=== PATIENT | female | born 1970 | race Caucasian/White ===

== ENCOUNTER 2016-06-07 21:24 | Emergency (ER) | payer BC ==
[~2016-06-07] VITALS: Ht 167.6 cm; Wt 81.4 kg
[2016-06-07 21:55] LABS: HEMATOCRIT 36.5 % (36.0-46.0); MCH 30.5 PG (29.0-34.0); MCHC 32.9 G/DL (30.0-36.0); MCV 92.6 FL (83-99); MEAN PLAT.VOLUME 10.6 uM^3 (9.5-12.4); PLATELET COUNT 262 K/uL (156-360); RBC DIS.WIDTH-CV 12.5 % (11.8-14.6); RED BLOOD COUNT 3.94 M/uL (3.80-5.20); WHITE BLOOD COUNT 7.3 K/uL (4.1-10.2)
[2016-06-07 22:09] LABS: CHLORIDE 101 mEq/L (99-109); POTASSIUM 3.6 mEq/L (3.7-5.4); SODIUM 134 mEq/L (136-147)
[2016-06-07 22:12] LABS: ANION GAP 13 MEQ/L (2-14)
[2016-06-07 22:20] LABS: GLUCOSE 114 mg/dL (70-99)
[2016-06-07 22:24] LABS: GFR ESTIMATE (CALCULATED) > 59 mL/min/
[2016-06-07 22:25] LABS: TROP-I INTERPRETATION NEGATIVE; TROPONIN-I < 0.01 ng/mL (0.0-0.30)
[2016-06-07 22:25] LABS: UREA NITROGEN (BUN) 13 mg/dL (9-23)
[2016-06-07 22:27] LABS: LIPASE 5 U/L (1.0-51.0)
[2016-06-07 22:47] LABS: QUANTITATIVE HCG < 4.0 MIU/ML
[2016-06-07 23:08] LABS: ADD MIUA? YES; BILIRUBIN NEGATIVE; BLOOD SMALL; GLUCOSE (STRIP) NEGATIVE; KETONES 5; LEUKOCYTES MODERATE; NITRITE POSITIVE; PROTEIN (STRIP) 30; SPECIFIC GRAVITY 1.011 (1.000-1.030)
[2016-06-07 23:33] LABS: COLOR YELLOW ((YELLOW))
[2016-06-07 23:57] LABS: EPITHELIAL CELLS RARE /HPF; MUCUS NONE SEEN /LPF; UCUL ADDED? YES; WHITE BLOOD CELLS TNTC /HPF (0-5)
[2016-06-08 00:01] LABS: BACTERIA 1+ /HPF
[2016-06-08] MEDS ORDERED: AUGMENTIN875 MG PO (00:28)
[2016-06-08] MEDS ORDERED: TYLENOL WITH C1 EACH PO (00:28)
[2016-06-08] MEDS ORDERED: ZOFRAN ODT4 MG PO (00:31)
[2016-06-08 01:29] VITALS: BP 122/74
== END 2016-06-08 01:35 | disposition home or self-care (01) ==
LOC: EME 21:24
PROVIDERS: Physician Assistant
DX: N12 Tubulo-interstitial nephritis, not specified as acute or chronic (principal); R07.9 Chest pain, unspecified; Z87.442 Personal history of urinary calculi; Z98.84 Bariatric surgery status
CPT/HCPCS: 71010; 80048; 81003; 83605; 83690; 84484; 84702; 85027; 87040; 87077; 87086; 87186; 87801; 93005; 99281; 99285; J0696; J1885; J2270; J2405; J3010; J7050

== ENCOUNTER 2016-09-25 06:18 | Emergency (ER) | payer BC ==
[~2016-09-25] VITALS: Ht 167.6 cm; Wt 83.5 kg
[~2016-09-25 06:18] MED LIST: AUGMENTIN875 MG PO; TYLENOL WITH C1 EACH PO; ZOFRAN ODT4 MG PO
[2016-09-25 06:39] LABS: HEMATOCRIT 33.1 % (36.0-46.0); MCH 30.3 PG (29.0-34.0); MCHC 32.6 G/DL (30.0-36.0); MEAN PLAT.VOLUME 10.7 uM^3 (9.5-12.4); PLATELET COUNT 334 K/uL (156-360); RBC DIS.WIDTH-CV 13.2 % (11.8-14.6); RED BLOOD COUNT 3.56 M/uL (3.80-5.20); WHITE BLOOD COUNT 14.8 K/uL (4.1-10.2)
[2016-09-25 06:50] LABS: CHLORIDE 106 mEq/L (99-109); POTASSIUM 3.8 mEq/L (3.7-5.4); SODIUM 139 mEq/L (136-147)
[2016-09-25 06:51] LABS: GLUCOSE 94 mg/dL (70-99)
[2016-09-25 06:53] LABS: ANION GAP 9 MEQ/L (2-14)
[2016-09-25 06:55] LABS: GFR ESTIMATE (CALCULATED) > 59 mL/min/
[2016-09-25 06:56] LABS: UREA NITROGEN (BUN) 10 mg/dL (9-23)
[2016-09-25 07:38] LABS: QUANTITATIVE HCG < 4.0 MIU/ML
[2016-09-25 07:58] LABS: ALKALINE PHOSPHATASE 70 IU/L (3-129); LIPASE 4 U/L (1.0-51.0); TOTAL BILIRUBIN 0.2 MG/DL (0.0-1.0)
[2016-09-25 10:09] LABS: ADD MIUA? YES; BILIRUBIN NEGATIVE; BLOOD MODERATE; COLOR YELLOW ((YELLOW)); GLUCOSE (STRIP) NEGATIVE; KETONES NEGATIVE; LEUKOCYTES SMALL; NITRITE NEGATIVE; PROTEIN (STRIP) NEGATIVE; SPECIFIC GRAVITY 1.032 (1.000-1.030); UROBILINOGEN 0.2 MG/DL (0.2-1.0)
[2016-09-25 10:13] LABS: BACTERIA RARE /HPF; EPITHELIAL CELLS RARE /HPF; MUCUS NONE SEEN /LPF; RED BLOOD CELLS 0-5 /HPF (0-5); UCUL ADDED? NO
[2016-09-25] MEDS ORDERED: NAPROXEN500 MG PO (13:35)
[2016-09-25 14:12] VITALS: BP 97/57
[2016-09-28 13:46] LABS: CHLAMYDIA TRACHOMATIS NEGATIVE; NEISSERIA GONORRHOEAE NEGATIVE
== END 2016-09-25 14:14 | disposition home or self-care (01) ==
LOC: EME 06:18
PROVIDERS: Physician Assistant
DX: N73.9 Female pelvic inflammatory disease, unspecified (principal); N76.0 Acute vaginitis; D25.9 Leiomyoma of uterus, unspecified; G43.909 Migraine, unspecified, not intractable, without status migrainosus; Z98.84 Bariatric surgery status
CPT/HCPCS: 74177; 76856; 80048; 80076; 81003; 83605; 83690; 84702; 85027; 87210; 87480; 87491; 87510; 87591; 87660; 99281; 99284; J0696; J1885; J2270; J3010; J7120

== ENCOUNTER 2016-09-26 23:17 | Emergency (ER) | payer BC ==
[~2016-09-26] VITALS: Ht 167.6 cm; Wt 83.8 kg
[~2016-09-26 23:17] MED LIST changes: +NAPROXEN500 MG PO
[2016-09-27 00:51] LABS: EOSINOPHIL (%) 1.9 % (0-5); EOSINOPHIL COUNT 0.2 K/uL (0-0.3); HEMATOCRIT 33.6 % (36.0-46.0); IMMATURE GRANULOCYTE (%) 0.3 % (0.0-0.7); INSTRUMENT ABS NEUTROPHIL CT 5.5 K/uL; LYMPHOCYTE COUNT 2.7 K/uL (1.0-2.8); MCHC 31.8 G/DL (30.0-36.0); MCV 94.1 FL (83-99); MEAN PLAT.VOLUME 10.7 uM^3 (9.5-12.4); MONOCYTE COUNT 0.6 K/uL (0-0.8); NEUTROPHIL (%) 60.5 % (45-76); NEUTROPHIL COUNT 5.5 K/uL (1.8-6.4); PLATELET COUNT 313 K/uL (156-360); RBC DIS.WIDTH-CV 12.9 % (11.8-14.6); RBC DIS.WIDTH-SD 44.6 % (39-53); RED BLOOD COUNT 3.57 M/uL (3.80-5.20)
[2016-09-27 01:01] LABS: CHLORIDE 102 mEq/L (99-109); POTASSIUM 4.2 mEq/L (3.7-5.4); SODIUM 135 mEq/L (136-147)
[2016-09-27 01:03] LABS: GLUCOSE 99 mg/dL (70-99)
[2016-09-27 01:04] LABS: ANION GAP 9 MEQ/L (2-14)
[2016-09-27 01:05] LABS: TOTAL BILIRUBIN 0.2 mg/dL (0.0-1.0)
[2016-09-27 01:07] LABS: ALKALINE PHOSPHATASE 66 IU/L (3-129); GFR ESTIMATE (CALCULATED) > 59 mL/min/
[2016-09-27 01:08] LABS: UREA NITROGEN (BUN) 11 mg/dL (9-23)
[2016-09-27 01:10] LABS: LIPASE 5 U/L (1.0-51.0)
[2016-09-27 01:51] LABS: COLOR ORANGE ((YELLOW))
[2016-09-27 01:52] LABS: ADD MIUA? YES
[2016-09-27 01:55] LABS: SPECIFIC GRAVITY 1.045 (1.000-1.030)
[2016-09-27 01:56] LABS: RED BLOOD CELLS 0-5 /HPF (0-5)
[2016-09-27 01:57] LABS: BACTERIA 1+ /HPF; EPITHELIAL CELLS 1+ /HPF; MUCUS 2+ /LPF
[2016-09-27 01:58] LABS: CRYSTALS PRESENT
[2016-09-27 02:00] LABS: AMORPHOUS URATES CRYSTALS 1+
[2016-09-27] MEDS ORDERED: PERCOCET 5/31 TABLET PO (04:06)
[2016-09-27] MEDS ORDERED: KEFLEX500 MG PO (04:06)
[2016-09-27] MEDS ORDERED: PYRIDIUM200 MG PO (04:06)
[2016-09-27 04:41] VITALS: BP 97/58
== END 2016-09-27 04:45 | disposition home or self-care (01) ==
LOC: EME 23:17
PROVIDERS: Physician Assistant
DX: N39.0 Urinary tract infection, site not specified (principal); Z87.442 Personal history of urinary calculi; Z98.84 Bariatric surgery status; Z90.49 Acquired absence of other specified parts of digestive tract; F17.200 Nicotine dependence, unspecified, uncomplicated
CPT/HCPCS: 76856; 80053; 81003; 83690; 85025; 87086; 99281; 99285; J0696; J1885; J2270; J2405; J3010; J7050

== ENCOUNTER 2017-04-18 17:46 | Emergency (ER) | payer BC ==
[~2017-04-18] VITALS: Ht 170.2 cm; Wt 81.8 kg
[~2017-04-18 17:46] MED LIST changes: +KEFLEX500 MG PO; +PERCOCET 5/31 TABLET PO; +PYRIDIUM200 MG PO
[2017-04-18 18:26] LABS: HEMATOCRIT 31.3 % (36.0-46.0); HEMOGLOBIN 10.5 G/DL (11.9-15.5); MCH 31.2 PG (29.0-34.0); MCHC 33.5 G/DL (30.0-36.0); MCV 92.9 FL (83-99); PLATELET COUNT 330 K/uL (156-360); RBC DIS.WIDTH-CV 12.9 % (11.8-14.6); RBC DIS.WIDTH-SD 43.8 % (39-53); RED BLOOD COUNT 3.37 M/uL (3.80-5.20); WHITE BLOOD COUNT 9.7 K/uL (4.1-10.2)
[2017-04-18 18:35] LABS: CHLORIDE 112 mEq/L (99-109); POTASSIUM 3.5 mEq/L (3.7-5.4); SODIUM 141 mEq/L (136-147)
[2017-04-18 18:37] LABS: GLUCOSE 107 mg/dL (70-99)
[2017-04-18 18:41] LABS: CREATININE 0.7 mg/dL (0.6-1.3); GFR ESTIMATE (CALCULATED) > 59 mL/min/
[2017-04-18 18:42] LABS: UREA NITROGEN (BUN) 10 mg/dL (9-23)
[2017-04-18 22:56] LABS: APPEARANCE CLEAR ((CLEAR)); BILIRUBIN NEGATIVE; BLOOD NEGATIVE; COLOR STRAW ((YELLOW)); GLUCOSE (STRIP) NEGATIVE; KETONES NEGATIVE; LEUKOCYTES NEGATIVE; NITRITE NEGATIVE; PROTEIN (STRIP) NEGATIVE; SPECIFIC GRAVITY 1.035 (1.000-1.030); UROBILINOGEN 0.2 MG/DL (0.2-1.0)
[2017-04-18 23:09] LABS: ALBUMIN 2.7 g/dL (3.2-4.8)
[2017-04-18 23:12] LABS: TOTAL PROTEIN 4.8 g/dL (6.4-8.3)
[2017-04-18 23:13] LABS: TOTAL BILIRUBIN 0.3 mg/dL (0.0-1.0)
[2017-04-18 23:14] LABS: ALKALINE PHOSPHATASE 74 IU/L (3-129)
[2017-04-18 23:17] LABS: ALT (GPT) 23 IU/L (3-49); AST (GOT) 27 IU/L (2-34); DIRECT BILIRUBIN 0.2 mg/dL (0.0-0.3)
[2017-04-18 23:18] LABS: LIPASE 3 U/L (1.0-51.0)
[2017-04-19] MEDS ORDERED: MEDROL DOSEPAK4 MG PO (00:05)
[2017-04-19 00:47] VITALS: BP 128/89
== END 2017-04-19 00:49 | disposition left against medical advice (07) ==
LOC: EME 17:46
PROVIDERS: Emergency Medicine; Nurse Practitioner Family
DX: M54.9 Dorsalgia, unspecified (principal); M47.897 Other spondylosis, lumbosacral region; G95.89 Other specified diseases of spinal cord; M46.97 Unspecified inflammatory spondylopathy, lumbosacral region; G89.29 Other chronic pain; Z87.442 Personal history of urinary calculi; Z90.49 Acquired absence of other specified parts of digestive tract; Z98.84 Bariatric surgery status; Z87.440 Personal history of urinary (tract) infections
CPT/HCPCS: 72132; 74176; 80048; 80076; 81003; 83690; 85027; 99281; 99284; J1100; J1885; J2060; J2270; J3010; J7030; J7050

== ENCOUNTER 2017-05-17 20:07 | Emergency (ER) | payer BC ==
[~2017-05-17] VITALS: Ht 167.6 cm; Wt 81.6 kg
[~2017-05-17 20:07] MED LIST changes: +MEDROL DOSEPAK4 MG PO
[2017-05-17 22:19] VITALS: BP 145/95
== END 2017-05-17 22:26 | disposition home or self-care (01) ==
LOC: EME 20:07
DX: T19.2XXA Foreign body in vulva and vagina, initial encounter (principal); Z87.440 Personal history of urinary (tract) infections; Z87.442 Personal history of urinary calculi; Z90.49 Acquired absence of other specified parts of digestive tract; Z86.19 Personal history of other infectious and parasitic diseases; Z98.84 Bariatric surgery status; Z98.890 Other specified postprocedural states
CPT/HCPCS: 99281; 99284

== ENCOUNTER 2017-05-26 19:39 | Emergency (ER) | payer BC ==
[~2017-05-26] VITALS: Ht 167.6 cm; Wt 79.1 kg
[2017-05-26] MEDS ORDERED: AUGMENTIN875 MG PO (22:26)
[2017-05-26] MEDS ORDERED: FLONASE16 G1 BOTH NARES (22:36)
[2017-05-26] MEDS ORDERED: MUCINEX D ER T1 EACH PO (22:36)
[2017-05-26] MEDS ORDERED: PREDNISONE20 MG PO (22:36)
[2017-05-26 23:13] VITALS: BP 108/67
== END 2017-05-26 23:19 | disposition home or self-care (01) ==
LOC: EME 19:39
DX: J32.9 Chronic sinusitis, unspecified (principal); J02.9 Acute pharyngitis, unspecified; K02.9 Dental caries, unspecified
CPT/HCPCS: 87651 90; 99281; 99283; J7512

== ENCOUNTER 2017-08-10 19:55 | Emergency (ER) | payer BC ==
[~2017-08-10] VITALS: Ht 167.6 cm; Wt 75.6 kg
[~2017-08-10 19:55] MED LIST changes: +FLONASE16 G1 BOTH NARES; +MUCINEX D ER T1 EACH PO; +PREDNISONE20 MG PO
[2017-08-10 20:28] LABS: HEMATOCRIT 35.9 % (36.0-46.0); MCH 31.6 PG (29.0-34.0); MCHC 33.4 G/DL (30.0-36.0); MCV 94.5 FL (83-99); PLATELET COUNT 416 K/uL (156-360); RBC DIS.WIDTH-SD 45.2 % (39-53); WHITE BLOOD COUNT 12.1 K/uL (4.1-10.2)
[2017-08-10 20:43] LABS: CHLORIDE 105 mEq/L (99-109); SODIUM 142 mEq/L (136-147)
[2017-08-10 20:45] LABS: GLUCOSE 120 mg/dL (70-99)
[2017-08-10 20:49] LABS: CREATININE 0.8 mg/dL (0.6-1.3); GFR ESTIMATE (CALCULATED) > 59 mL/min/
[2017-08-10 20:50] LABS: UREA NITROGEN (BUN) 12 mg/dL (9-23)
[2017-08-10 20:53] LABS: TROP-I INTERPRETATION NEGATIVE; TROPONIN-I < 0.01 ng/mL (0.0-0.30)
[2017-08-11 02:24] LABS: TROP-I INTERPRETATION NEGATIVE; TROPONIN-I < 0.01 ng/mL (0.0-0.30)
[2017-08-11] MEDS ORDERED: PERCOCET 5/31 TABLET PO (02:46)
[2017-08-11 03:05] VITALS: BP 141/74
== END 2017-08-11 03:10 | disposition home or self-care (01) ==
LOC: EME 19:55
PROVIDERS: Emergency Medicine
DX: K02.9 Dental caries, unspecified (principal); R07.9 Chest pain, unspecified; F41.9 Anxiety disorder, unspecified; Z87.442 Personal history of urinary calculi; Z87.440 Personal history of urinary (tract) infections; Z90.49 Acquired absence of other specified parts of digestive tract; Z98.84 Bariatric surgery status; Z88.5 Allergy status to narcotic agent
CPT/HCPCS: 71046; 80048; 84484; 85027; 93005; 99281; 99284; J1885; S0020

== ENCOUNTER 2017-10-01 14:23 | Emergency (ER) | payer BC ==
[~2017-10-01] VITALS: Ht 165.1 cm; Wt 78.7 kg
[2017-10-01] MEDS ORDERED: LIDOCAINE20 MG/1 M5 PO (17:36)
[2017-10-01 17:58] VITALS: BP 123/80
== END 2017-10-01 17:59 | disposition home or self-care (01) ==
LOC: EXP 14:23 → EME 14:23 → EXP 17:59
DX: J02.9 Acute pharyngitis, unspecified (principal); R05 Cough; R06.02 Shortness of breath; R49.0 Dysphonia; Z98.84 Bariatric surgery status
CPT/HCPCS: 87081; 87651 90; J1100

== ENCOUNTER 2017-10-24 10:23 | Observation (INO) | payer BC ==
[~2017-10-24] VITALS: Ht 167.6 cm; Wt 72.9 kg
[~2017-10-24 10:23] MED LIST changes: +LIDOCAINE20 MG/1 M5 PO
[2017-10-24 11:05] LABS: BASOPHIL (%) 0.4 % (0-1); EOSINOPHIL (%) 1.1 % (0-5); EOSINOPHIL COUNT 0.1 K/uL (0-0.3); HEMATOCRIT 28.2 % (36.0-46.0); HEMOGLOBIN 9.5 G/DL (11.9-15.5); IMMATURE GRANULOCYTE (%) 0.5 % (0.0-0.7); LYMPHOCYTE (%) 19.6 % (15-42); LYMPHOCYTE COUNT 2.1 K/uL (1.0-2.8); MCH 31.6 PG (29.0-34.0); MCHC 33.7 G/DL (30.0-36.0); MCV 93.7 FL (83-99); MONOCYTE (%) 7.2 % (3-12); MONOCYTE COUNT 0.8 K/uL (0-0.8); NEUTROPHIL (%) 71.2 % (45-76); NEUTROPHIL COUNT 7.7 K/uL (1.8-6.4); PLATELET COUNT 367 K/uL (156-360); RBC DIS.WIDTH-CV 13.3 % (11.8-14.6); RBC DIS.WIDTH-SD 44.9 % (39-53); RED BLOOD COUNT 3.01 M/uL (3.80-5.20); WHITE BLOOD COUNT 10.8 K/uL (4.1-10.2)
[2017-10-24 11:15] LABS: CHLORIDE 108 mEq/L (99-109); POTASSIUM 4.9 mEq/L (3.7-5.4); SODIUM 138 mEq/L (136-147)
[2017-10-24 11:16] LABS: GLUCOSE 104 mg/dL (70-99)
[2017-10-24 11:20] LABS: CREATININE 0.7 mg/dL (0.6-1.3); GFR ESTIMATE (CALCULATED) > 59 mL/min/
[2017-10-24 11:21] LABS: UREA NITROGEN (BUN) 13 mg/dL (9-23)
[2017-10-24 11:26] LABS: TROP-I INTERPRETATION NEGATIVE; TROPONIN-I < 0.01 ng/mL (0.0-0.30)
[2017-10-24 13:59] LABS: APPEARANCE CLEAR ((CLEAR)); BILIRUBIN NEGATIVE; BLOOD SMALL; COLOR YELLOW ((YELLOW)); GLUCOSE (STRIP) NEGATIVE; KETONES NEGATIVE; LEUKOCYTES SMALL; NITRITE NEGATIVE; PROTEIN (STRIP) NEGATIVE; SPECIFIC GRAVITY 1.012 (1.000-1.030); UROBILINOGEN 0.2 MG/DL (0.2-1.0)
[2017-10-24] MEDS ORDERED: DESYREL100 MG PO (14:00)
[2017-10-24] MEDS ORDERED: CLONAZEPAM0.5 MG PO (14:00)
[2017-10-24] MEDS ORDERED: OXYMORPHONE HCL10 M1 PO (14:00)
[2017-10-24] MEDS ORDERED: VENLAFAXINE HC150 M1 PO (14:01)
[2017-10-24 14:07] LABS: AMPHETAMINE NEGATIVE (500 ng/mL); BACTERIA NONE SEEN /HPF; BARBITURATES NEGATIVE (200 ng/mL); BENZODIAZEPINES NEGATIVE (150 ng/mL); BUPRENORPHINE NEGATIVE (10 ng/mL); CALCIUM OXALATE CRYSTALS 1+ /HPF; COCAINE NEGATIVE (150 ng/mL); EPITHELIAL CELLS RARE /HPF; HYALINE CASTS 0-5 /LPF; METHADONE NEGATIVE (200 ng/mL); METHAMPHETAMINE NEGATIVE (500 ng/mL); MUCUS TRACE /LPF; OPIATES (MORPHINE) NEGATIVE (100 ng/mL); OXYCODONE NEGATIVE (100 ng/mL); PHENCYCLIDINE NEGATIVE (25 ng/mL); PROPOXYPHENE NEGATIVE (300 ng/mL); THC CANNABINOIDS NEGATIVE (50 ng/mL); TRICYCLIC ANTIDEPRESSANTS NEGATIVE (300 ng/mL); UCUL ADDED? YES; WHITE BLOOD CELLS 20-30 /HPF (0-5)
[2017-10-24] MEDS ORDERED: OXYCODONE HCL10 MG PO (14:39)
[2017-10-24] MEDS ORDERED: FLUOXETINE HCL40 MG PO (14:40)
[2017-10-24 15:12] LABS: SERUM ETHYL ALCOHOL < 10 mg/dL
[2017-10-24 15:17] LABS: MAGNESIUM 2.3 mg/dL (1.3-2.7)
[2017-10-24 16:01] VITALS: BP 118/67
[2017-10-24 18:17] LABS: TROP-I INTERPRETATION NEGATIVE; TROPONIN-I < 0.01 ng/mL (0.0-0.30)
[2017-10-24 23:42] VITALS: BP 123/83
[2017-10-25 01:21] LABS: TROP-I INTERPRETATION NEGATIVE; TROPONIN-I < 0.01 ng/mL (0.0-0.30)
[2017-10-25 04:16] VITALS: BP 133/65
[2017-10-25 05:25] LABS: HEMATOCRIT 34.3 % (36.0-46.0); HEMOGLOBIN 11.2 G/DL (11.9-15.5); MCH 31.3 PG (29.0-34.0); MCHC 32.7 G/DL (30.0-36.0); MCV 95.8 FL (83-99); PLATELET COUNT 420 K/uL (156-360); RBC DIS.WIDTH-CV 13.3 % (11.8-14.6); RBC DIS.WIDTH-SD 46.6 % (39-53); RED BLOOD COUNT 3.58 M/uL (3.80-5.20); WHITE BLOOD COUNT 14.1 K/uL (4.1-10.2)
[2017-10-25 05:32] LABS: PTT 24.7 SEC (25-37)
[2017-10-25 05:47] LABS: CHLORIDE 107 MEQ/L (99-109); CREATININE 0.8 MG/DL (0.6-1.3); GFR ESTIMATE (CALCULATED) > 59 mL/min/; GLUCOSE 87 mg/dL (70-99); SODIUM 141 MEQ/L (136-147); UREA NITROGEN (BUN) 11 mg/dL (9-23)
[2017-10-25 06:11] LABS: POTASSIUM 3.5 MEQ/L (3.7-5.4)
[2017-10-25 08:04] VITALS: BP 125/75
[2017-10-25 11:02] VITALS: BP 135/89
[2017-10-25 15:46] VITALS: BP 145/80
[2017-10-25] MEDS ORDERED: AUGMENTIN875 MG PO (16:32)
== END 2017-10-25 20:33 | disposition home or self-care (01) ==
LOC: EME 10:23 → TRA 10:23 → EDOF 14:07 → 4SOUTH 14:07 → EDOF 14:07 → ENRESERV 14:22 → 4SOUTH 15:38
PROVIDERS: Emergency Medicine; Internal Medicine
PROC: 0CQ0XZZ Repair Upper Lip, External Approach (ICD-10-PCS; principal; 2017-10-24)
DX: R55 Syncope and collapse (principal); S02.40CA Maxillary fracture, right side, initial encounter for closed fracture; J34.2 Deviated nasal septum; S01.512A Laceration without foreign body of oral cavity, initial encounter; F33.9 Major depressive disorder, recurrent, unspecified; F42.9 Obsessive-compulsive disorder, unspecified; D62 Acute posthemorrhagic anemia; W22.09XA Striking against other stationary object, initial encounter
CPT/HCPCS: 70450; 70486; 71045; 72125; 80048; 81003; 83735; 84484; 85025; 85027; 85610; 85730; 87077; 87086; 87186; 93005; 99281; 99284; G0378; G0480; G8978 GP CH; G8979 GP CH; G8980 GP CH; J0690; J0696; J1170; J2270; J7030

== ENCOUNTER 2017-10-26 09:14 | Emergency (ER) | payer BC ==
[~2017-10-26] VITALS: Ht 165.1 cm; Wt 76.2 kg
[~2017-10-26 09:14] MED LIST changes: +CLONAZEPAM0.5 MG PO; +DESYREL100 MG PO; +FLUOXETINE HCL40 MG PO; +OXYCODONE HCL10 MG PO; +OXYMORPHONE HCL10 M1 PO; +VENLAFAXINE HC150 M1 PO
[2017-10-26 10:34] LABS: HEMATOCRIT 32.3 % (36.0-46.0); HEMOGLOBIN 10.5 G/DL (11.9-15.5); MCH 31.2 PG (29.0-34.0); MCHC 32.5 G/DL (30.0-36.0); MCV 95.8 FL (83-99); PLATELET COUNT 363 K/uL (156-360); RBC DIS.WIDTH-CV 13.2 % (11.8-14.6); RBC DIS.WIDTH-SD 46.3 % (39-53); RED BLOOD COUNT 3.37 M/uL (3.80-5.20); WHITE BLOOD COUNT 9.9 K/uL (4.1-10.2)
[2017-10-26 10:47] LABS: CHLORIDE 109 mEq/L (99-109); POTASSIUM 3.5 mEq/L (3.7-5.4); SODIUM 142 mEq/L (136-147)
[2017-10-26 10:48] LABS: GLUCOSE 93 mg/dL (70-99)
[2017-10-26 10:52] LABS: CREATININE 0.7 mg/dL (0.6-1.3); GFR ESTIMATE (CALCULATED) > 59 mL/min/
[2017-10-26 10:53] LABS: UREA NITROGEN (BUN) 8 mg/dL (9-23)
[2017-10-26 11:06] LABS: INTER. NORMALIZED RATIO 0.9
[2017-10-26 11:09] LABS: PTT 25.4 SEC (25-37)
[2017-10-26 13:13] VITALS: BP 126/90
== END 2017-10-26 13:31 | disposition home or self-care (01) ==
LOC: EME 09:14
PROVIDERS: Emergency Medicine
PROC: 2Y41X5Z Packing of Nasal Region using Packing Material (ICD-10-PCS; principal; 2017-10-26)
DX: R04.0 Epistaxis (principal); S02.40CA Maxillary fracture, right side, initial encounter for closed fracture; G89.29 Other chronic pain; M54.9 Dorsalgia, unspecified; G43.909 Migraine, unspecified, not intractable, without status migrainosus; F41.9 Anxiety disorder, unspecified; F32.9 Major depressive disorder, single episode, unspecified; Z87.442 Personal history of urinary calculi; Z87.440 Personal history of urinary (tract) infections; Z98.84 Bariatric surgery status; Z90.49 Acquired absence of other specified parts of digestive tract; Z88.5 Allergy status to narcotic agent
CPT/HCPCS: 80048; 85027; 85610; 85730; J2270

== ENCOUNTER 2017-10-27 10:52 | Emergency (ER) | payer BC ==
[~2017-10-27] VITALS: Ht 165.1 cm; Wt 74.9 kg
[2017-10-27 11:57] LABS: BASOPHIL (%) 0.3 % (0-1); EOSINOPHIL (%) 1.2 % (0-5); EOSINOPHIL COUNT 0.1 K/uL (0-0.3); HEMATOCRIT 28.2 % (36.0-46.0); HEMOGLOBIN 9.1 G/DL (11.9-15.5); IMMATURE GRANULOCYTE (%) 0.5 % (0.0-0.7); LYMPHOCYTE (%) 21.6 % (15-42); LYMPHOCYTE COUNT 2.4 K/uL (1.0-2.8); MCH 31.3 PG (29.0-34.0); MCHC 32.3 G/DL (30.0-36.0); MCV 96.9 FL (83-99); MONOCYTE COUNT 0.8 K/uL (0-0.8); NEUTROPHIL (%) 69.4 % (45-76); NEUTROPHIL COUNT 7.6 K/uL (1.8-6.4); PLATELET COUNT 338 K/uL (156-360); RBC DIS.WIDTH-CV 13.3 % (11.8-14.6); RBC DIS.WIDTH-SD 47.1 % (39-53); RED BLOOD COUNT 2.91 M/uL (3.80-5.20); WHITE BLOOD COUNT 10.9 K/uL (4.1-10.2)
[2017-10-27 13:44] VITALS: BP 114/75
== END 2017-10-27 13:44 | disposition home or self-care (01) ==
LOC: EME 10:52
PROVIDERS: Emergency Medicine
DX: R04.0 Epistaxis (principal); S02.92XD Unspecified fracture of facial bones, subsequent encounter for fracture with routine healing; W06.XXXD Fall from bed, subsequent encounter; F32.9 Major depressive disorder, single episode, unspecified; F41.9 Anxiety disorder, unspecified; Z98.84 Bariatric surgery status; Z88.5 Allergy status to narcotic agent
CPT/HCPCS: 85025; 85610; 99281; 99284

== ENCOUNTER 2017-10-31 12:05 | Inpatient (IN) | payer BC ==
[~2017-10-31] VITALS: Ht 165.1 cm; Wt 75.1 kg
[2017-10-31] VITALS (9 sets, daily range): BP systolic 90–135; BP diastolic 57–79
[2017-10-31 13:18] LABS: HEMATOCRIT 22.9 % (36.0-46.0); HEMOGLOBIN 7.6 G/DL (11.9-15.5); MCH 31.9 PG (29.0-34.0); MCHC 33.2 G/DL (30.0-36.0); MCV 96.2 FL (83-99); PLATELET COUNT 277 K/uL (156-360); RBC DIS.WIDTH-CV 14.1 % (11.8-14.6); RBC DIS.WIDTH-SD 48.8 % (39-53); RED BLOOD COUNT 2.38 M/uL (3.80-5.20); WHITE BLOOD COUNT 5.7 K/uL (4.1-10.2)
[2017-10-31 13:28] LABS: CHLORIDE 109 mEq/L (99-109); POTASSIUM 2.9 mEq/L (3.7-5.4); SODIUM 142 mEq/L (136-147)
[2017-10-31 13:30] LABS: GLUCOSE 90 mg/dL (70-99)
[2017-10-31 13:34] LABS: CREATININE 0.7 mg/dL (0.6-1.3); GFR ESTIMATE (CALCULATED) > 59 mL/min/
[2017-10-31 13:35] LABS: UREA NITROGEN (BUN) 6 mg/dL (9-23)
[2017-10-31 13:41] LABS: TROP-I INTERPRETATION NEGATIVE; TROPONIN-I < 0.01 ng/mL (0.0-0.30)
[2017-10-31] MEDS ORDERED: LYRICA75 MG PO (17:16)
[2017-10-31] MEDS ORDERED: ZANAFLEX4 MG PO (17:16)
[2017-10-31] MEDS ORDERED: NEOSPORIN + P28.3 GM TP (17:17)
[2017-10-31 18:40] LABS: SERUM ETHYL ALCOHOL 15 mg/dL
[2017-10-31 19:55] LABS: BENZODIAZEPINES, URINE SCREEN POSITIVE (200 ng/mL)
[2017-10-31 21:29] LABS: FOLIC ACID (FOLATE) 12.9 NG/ML (5.0-22.0)
[2017-10-31 23:16] LABS: ALBUMIN 2.4 g/dL (3.2-4.8); CHLORIDE 110 mEq/L (99-109); SODIUM 142 mEq/L (136-147)
[2017-10-31 23:18] LABS: GLUCOSE 100 mg/dL (70-99)
[2017-10-31 23:19] LABS: TOTAL PROTEIN 4.9 g/dL (6.4-8.3)
[2017-10-31 23:20] LABS: TOTAL BILIRUBIN 0.7 mg/dL (0.0-1.0)
[2017-10-31 23:22] LABS: ALKALINE PHOSPHATASE 114 IU/L (3-129); CREATININE 0.7 mg/dL (0.6-1.3); GFR ESTIMATE (CALCULATED) > 59 mL/min/
[2017-10-31 23:23] LABS: UREA NITROGEN (BUN) 7 mg/dL (9-23)
[2017-10-31 23:24] LABS: AST (GOT) 45 IU/L (2-34)
[2017-10-31 23:25] LABS: ALT (GPT) 46 IU/L (3-49)
[2017-11-01 03:58] VITALS: BP 116/75
[2017-11-01 07:38] VITALS: BP 140/78
[2017-11-01 08:05] LABS: HEMATOCRIT 31.3 % (36.0-46.0); MCV 93.4 FL (83-99)
[2017-11-01 08:07] LABS: HEMOGLOBIN 10.3 G/DL (11.9-15.5)
[2017-11-01 08:20] LABS: ALBUMIN 2.2 G/DL (3.2-4.8); ALKALINE PHOSPHATASE 102 IU/L (3-129); ALT (GPT) 32 IU/L (3-49); AST (GOT) 32 IU/L (2-34); CHLORIDE 108 MEQ/L (99-109); CREATININE 0.7 MG/DL (0.6-1.3); DIRECT BILIRUBIN 0.1 mg/dL (0.0-0.3); GFR ESTIMATE (CALCULATED) > 59 mL/min/; GLUCOSE 88 mg/dL (70-99); POTASSIUM 3.6 MEQ/L (3.7-5.4); SODIUM 141 MEQ/L (136-147); TOTAL BILIRUBIN 0.5 MG/DL (0.0-1.0); TOTAL PROTEIN 4.5 G/DL (6.4-8.3); UREA NITROGEN (BUN) 6 mg/dL (9-23)
[2017-11-01 11:38] VITALS: BP 119/70
[2017-11-01 13:34] LABS: HEMOGLOBIN 10.7 G/DL (11.9-15.5); MCV 93.8 FL (83-99)
[2017-11-01 15:21] VITALS: BP 115/67
[2017-11-01 19:07] LABS: HEMATOCRIT 32.6 % (36.0-46.0); HEMOGLOBIN 10.8 G/DL (11.9-15.5); MCV 93.9 FL (83-99)
[2017-11-01 19:22] VITALS: BP 147/78
[2017-11-01 23:49] VITALS: BP 124/75
[2017-11-02 03:26] VITALS: BP 126/66
[2017-11-02 06:38] LABS: HEMATOCRIT 30.2 % (36.0-46.0); HEMOGLOBIN 9.8 G/DL (11.9-15.5); MCH 30.6 PG (29.0-34.0); MCHC 32.5 G/DL (30.0-36.0); MCV 94.4 FL (83-99); PLATELET COUNT 255 K/uL (156-360); RBC DIS.WIDTH-CV 14.2 % (11.8-14.6); RBC DIS.WIDTH-SD 49.6 % (39-53); WHITE BLOOD COUNT 6.5 K/uL (4.1-10.2)
[2017-11-02 07:10] LABS: CHLORIDE 112 MEQ/L (99-109); CREATININE 0.6 MG/DL (0.6-1.3); GFR ESTIMATE (CALCULATED) > 59 mL/min/; GLUCOSE 81 mg/dL (70-99); POTASSIUM 4.2 MEQ/L (3.7-5.4); SODIUM 144 MEQ/L (136-147); UREA NITROGEN (BUN) 4 mg/dL (9-23)
[2017-11-02 07:28] VITALS: BP 113/72
[2017-11-02 11:43] VITALS: BP 108/70
[2017-11-02 15:50] VITALS: BP 119/61
== END 2017-11-02 17:59 | disposition home or self-care (01) | DRG 812 ==
LOC: EME 12:05 → EDOF 17:57 → 2EAST 17:57
PROVIDERS: Emergency Medicine; Internal Medicine
PROC: 30233N1 Transfusion of Nonautologous Red Blood Cells into Peripheral Vein, Percutaneous Approach (ICD-10-PCS; principal; 2017-10-31)
DX: D64.9 Anemia, unspecified (principal); E87.6 Hypokalemia; I95.9 Hypotension, unspecified; R55 Syncope and collapse; I47.1 Supraventricular tachycardia; G89.4 Chronic pain syndrome; E83.51 Hypocalcemia; F42.9 Obsessive-compulsive disorder, unspecified; F41.9 Anxiety disorder, unspecified; F17.210 Nicotine dependence, cigarettes, uncomplicated; I10 Essential (primary) hypertension; F32.9 Major depressive disorder, single episode, unspecified; I45.81 Long QT syndrome; G25.81 Restless legs syndrome; E87.2 Acidosis; M54.9 Dorsalgia, unspecified; Z79.891 Long term (current) use of opiate analgesic; Z87.442 Personal history of urinary calculi; Z98.84 Bariatric surgery status; Z91.81 History of falling
CPT/HCPCS: 70450; 80048; 80053; 80076; 80306 90; 82533 91; 82607; 82728; 82746; 82948; 83605; 83880; 84484; 85014; 85018; 85027; 86850; 86900; 86901; 86920; 87040; 93005; 93306; 97530 GP; 99281; 99285; G0480; J1885; J2310; J2405; J2765; J7030; J7050; P9016